=== PATIENT | female | born 1945 | race American Indian/Alaskan Native ===

== ENCOUNTER 2016-06-18 18:35 | Observation (INO) | payer MEDICARE, OTHER ==
[2016-06-18] MEDS ORDERED: Sodium Chloride 0.9% 500 ML IV STA (19:03)
--- NOTE | 2016-06-18 19:10 | ED PDOC ---
Arrival/HPI - General Historian: Patient - History of Present Illness Time/Duration: < week Symptom Onset: Gradual Symptom Course: Unchanged Quality: Aching Severity Level: 4 Activities at Onset: Rest Context: Home <Jenae Whalen - Last Filed: 06/18/16 21:42> <Demond Meier - Last Filed: 06/18/16 21:53> - General Chief Complaint: Weakness/Neurological Deficit Time Seen by Provider: 06/18/16 18:42 - History of Present Illness Narrative History of Present Illness (Text): 06/18/16 19:05 This is a 70Y F with PMH CVA x 2, HTN, HLD, anxiety, seizures, Parkinsons and multiple falls who came to the ED for weakness, diarrhea, and headache. Patient reports she was recently at [facility] 2 weeks ago for weakness. She reports feeling unsteady on her feet. She fell on Thursday (4 days ago) on her R side. She denies hitting her head. She lives alone, but has a home senior radiation protection technician who is not with her at the time. The patient admits to having diarrhea since yesterday. She denies having any blood, dark in color, fever or chills, sick contacts or recent antibiotics. The diarrhea has improved today and she admits to vomiting once this morning. Her appetite has not changed and is able to tolerate food. She states she has a headache today located in the back of her neck on the R. She took Tylenol and her headache has now resolved. When asked, she does complain for burning with urination, but denies hematuria. 06/18/16 19:14 (Jenae Whalen) Past Medical History - Provider Review Nursing Documentation Reviewed: Yes - Infectious Disease Hx of Infectious Diseases: None - Tetanus Immunization Tetanus Immunization: Unknown - Cardiac Hx Cardiac Disorders: Yes Hx Hypertension: Yes - Pulmonary Hx Respiratory Disorders: No - Neurological Hx Neurological Disorder: Yes HX Cerebrovascular Accident: Yes (weakness) Hx Parkinson's Disease: Yes Hx Seizures: Yes - HEENT Hx HEENT Disorder: No - Renal Hx Renal Disorder: No - Endocrine/Metabolic Hx Endocrine Disorders: Yes Hx Diabetes Mellitus Type 2: Yes (no longer on meds) - Hematological/Oncological Hx Blood Disorders: No - Integumentary Hx Dermatological Disorder: No - Musculoskeletal/Rheumatological Hx Musculoskeletal Disorders: Yes Hx Falls: Yes (multiple falls) - Gastrointestinal Hx Gastrointestinal Disorders: No - Genitourinary/Gynecological Hx Genitourinary Disorders: No - Psychiatric Hx Psychophysiologic Disorder: No Hx Substance Use: No - Surgical History Hx Cholecystectomy: Yes - Anesthesia Hx Anesthesia: Yes Hx Anesthesia Reactions: No - Suicidal Assessment Feels Threatened In Home Enviroment: No <Jenae Whalen - Last Filed: 06/18/16 21:42> Family/Social History - Physician Review Nursing Documentation Reviewed: Yes Family/Social History: No Known Family HX Smoking Status: Never Smoked Hx Alcohol Use: No Hx Substance Use: No Hx Substance Use Treatment: No <Jenae Whalne - Last Filed: 06/18/16 21:42> Allergies/Home Meds <Jenae Whalen - Last Filed: 06/18/16 21:42> <Demond Meier - Last Filed: 06/18/16 21:53> Allergies/Adverse Reactions: Allergies No Known Allergies Allergy (Verified 06/18/16 18:59) Home Medications: Home Meds Medication Instructions Recorded Confirmed ALPRAZolam [Xanax] 1 mg PO DAILY 06/18/16 06/18/16 Acetaminophen [Tylenol 325mg tab] 975 mg PO TID 06/18/16 06/18/16 Aspirin [Aspirin] 1 tab PO DAILY 06/18/16 06/18/16 Carbidopa/Levodopa 1 tab PO BID 06/18/16 06/18/16 [Carbidopa-Levodopa 10-100 Tab] Docusate [Colace] 100 mg PO PRN PRN 06/18/16 06/18/16 Simvastatin [Zocor] 20 mg PO DAILY 06/18/16 06/18/16 Zolpidem [Ambien] 5 mg PO HS 06/18/16 06/18/16 amLODIPine [Norvasc] 5 mg PO DAILY 06/18/16 06/18/16 Review of Systems - Review of Systems Constitutional: Normal Eyes: Normal. absent: Vision Changes ENT: Normal. absent: Hearing Changes Respiratory: SOB. absent: Cough, Sputum, Wheezing Cardiovascular: Normal. absent: Chest Pain, Palpitations Gastrointestinal: Diarrhea, Vomiting. absent: Abdominal Pain, Nausea, Appetite Changes, Anorexia, Food Intolerance Genitourinary Female: Dysuria. absent: Frequency, Hematuria Musculoskeletal: Arthralgias Skin: Other Neurological: Headache, Focal Weakness. absent: Seizure Psychiatric: Normal <Jenae Whalen - Last Filed: 06/18/16 21:42> Physical Exam Temperature: Afebrile Blood Pressure: Normal Pulse: Regular Respiratory Rate: Normal Appearance: Positive for: Well-Appearing, Non-Toxic, Comfortable Pain Distress: None Mental Status: Positive for: Alert and Oriented X 3 - Systems Exam Head: Present: Atraumatic, Normocephalic Pupils: Present: PERRL Extroacular Muscles: Present: EOMI Conjunctiva: Present: Normal Mouth: Present: Moist Mucous Membranes Neck: Present: Normal Range of Motion, Paraspinal Tenderness (on R) Respiratory/Chest: Present: Clear to Auscultation, Good Air Exchange. No: Respiratory Distress, Accessory Muscle Use Cardiovascular: Present: Regular Rate and Rhythm, Normal S1, S2. No: Murmurs, Rub, Gallop Abdomen: Present: Normal Bowel Sounds, Other (bruising on R lower abdomen ). No : Tenderness, Distention, Peritoneal Signs Lower Extremity: Present: Edema (+1 bilaterally ), Tenderness (on R leg an hip. Bruising on R thigh and hip ) Neurological: Present: GCS=15, CN II-XII Intact, Speech Normal Skin: Present: Warm, Dry, Normal Color. No: Rashes Psychiatric: Present: Alert, Oriented x 3 <Jenae Whalen - Last Filed: 06/18/16 21:42> Medical Decision Making Re-evaluation Time: 21:25 Reassessment Condition: Unchanged - Lab Interpretations I have reviewed the lab results: Yes Interpretation: Abnormal lab values - RAD Interpretation Trim Master Operator: ED Physician, Radiologist <Jenae Whalen - Last Filed: 06/18/16 21:42> - Lab Interpretations I have reviewed the lab results: Yes <Demond Meier - Last Filed: 06/18/16 21:53> ED Course and Treatment: 06/18/16 21:34 Found to have UTI. Rocephin given. Patient continues to have hip pain and leg swelling. Morphine given and bilateral venous duplex ordered. 06/18/16 21:[address] Keller who accepted patient to her service. (Jenae Whalen) Impression: In agreement with resident note, which includes further HPI details. Patient was seen and evaluated with resident, came up with plan and treatment together. Pt, whose past medical history includes CVA, hypertension, hyperlipidemia, Parkinson's disease, anxiety, and multiple fall, presented complaining of weakness, headache, and diarrhea with 1 episode of vomiting. Plan: -- CT Head w/o contrast -- Chest X-ray -- XR Hip -- Labs -- UA -- IV fluids -- Reassess and disposition 06/18/16 21:51 Patient's history of Parkinson's and CVA and her living by herself with multiple recent falls is very concerning in the setting of generalized weakness. Given high risks of additional falls and serious injury - will treat the UTI and dehydration inpatient with IVF and IV antibiotics. Case discussed with on-call physician, Dr. Keller. (Demond Meier) - Lab Interpretations Lab Results: 06/18/16 20:39 06/18/16 19:26 Lab Results 06/18/16 20:39: WBC 5.6, RBC 3.98, Hgb 13.5, Hct 39.9, MCV 100.3, MCH 33.9, MCHC 33.8, RDW 13.5, Plt Count 123, MPV 8.6, Gran % 52.6, Lymph % (Auto) 37.7 H , Petroleum % (Auto) 8.4 H, Eos % (Auto) 0.9 L, Baso % (Auto) 0.4, Gran # 2.96, Lymph # 2.1, Petroleum # 0.5, Eos # 0.1, Baso # 0.02 06/18/16 19:26: Sodium 141, Potassium 4.8, Chloride 106, Carbon Dioxide 27, Anion Gap 13, BUN 29 H, Creatinine 1.0, Est GFR ( Amer) > 60, Est GFR ( Non-Af Amer) 55, Random Glucose 99, Calcium 9.3, Total Bilirubin 1.2, AST 24, ALT 19, Alkaline Phosphatase 93, Total Protein 7.0, Albumin 3.8, Globulin 3.2, Albumin/Globulin Ratio 1.2 06/18/16 19:05: Urine Color Yellow, Urine Appearance Clear, Urine pH 6.0, Ur Specific Molino 1.025, Urine Protein Negative, Urine Glucose (UA) Negative, Urine Ketones Negative, Urine Blood Negative, Urine Nitrate Negative, Urine Bilirubin Negative, Urine Urobilinogen 0.2, Ur Leukocyte Esterase Trace H, Urine RBC 0 - 2, Urine WBC 15 - 20, Ur Epithelial Cells 0 - 2, Urine Bacteria Small, Urine Other Mucus - RAD Interpretation Narrative RAD Interpretations (Text): 06/18/16 20:36 Hip XR no fractures noted. CXR showed no active disease. Head CT negative for acute finding. (Jenae Whalen) Radiology Orders: 06/18/16 18:59 HEAD W/O CONTRAST [CT] Stat CHEST PORTABLE [RAD] Stat HIP MIN 2V W/ PELVIS RT [RAD] Stat 06/18/16 21:19 Hip [CT HIP W/O CONTRAST BILATERAL] [CT] Stat 06/18/16 21:24 DUPLEX LOWER EXTRM VEIN BILAT [US] Stat - Medication Orders Current Medication Orders: Sodium Chloride (Sodium Chloride 0.9%) 1,000 mls @ 100 mls/hr IV .Q10H STA Stop: 06/19/16 07:18 Last Admin: 06/18/16 21:35 Dose: 100 mls/hr Discontinued Medications Sodium Chloride (Sodium Chloride 0.9%) 500 mls @ 999 mls/hr IV .Q31M STA Stop: 06/18/16 19:33 Last Admin: 06/18/16 19:32 Dose: 999 mls/hr Ceftriaxone Sodium (Rocephin 1 Gram Ivpb) 1 gm in 100 mls @ 200 mls/hr IVPB STAT STA PRN Reason: Protocol Stop: 06/18/16 21:41 Last Admin: 06/18/16 21:28 Dose: 200 mls/hr Morphine Sulfate (Morphine) 2 mg IVP STAT STA Stop: 06/18/16 21:25 Last Admin: 06/18/16 21:35 Dose: 2 mg - PA / AGENCY APPOINTMENTS SUPERVISOR / Resident Statement / has reviewed & agrees with the documentation as recorded. / has examined the patient and agrees with the treatment plan. <Demond Meier - Last Filed: 06/18/16 21:53> Disposition/Present on Arrival - Present on Arrival Any Indicators Present on Arrival: No History of DVT/PE: No History of Uncontrolled Diabetes: No Urinary Catheter: No History of Decub. Ulcer: No History Surgical Site Infection Following: None - Disposition Have Diagnosis and Disposition been Completed?: Yes Disposition Time: 21:25 Patient Plan: Admission <KobyJenae - Last Filed: 06/18/16 21:42> <Demond Meier - Last Filed: 06/18/16 21:53> - Disposition Diagnosis: UTI (urinary tract infection), Weakness, Fall Disposition: HOSPITALIZED Patient Problems: Current Active Problems Problem Status Onset Fall Acute UTI (urinary tract infection) Acute Weakness Acute Condition: FAIR Print Language: NICARAGUAN Referrals: [facility], [Non-Staff] - Follow up with primary Dash Kennedy MD [Medical Doctor] - Follow up with primary Linda Rose MD [Medical Doctor] - Follow up with primary
[2016-06-18 19:19] LABS: URINE BILIRUBIN NEGATIVE (NEGATIVE); URINE BLOOD NEGATIVE (NEGATIVE); URINE GLUCOSE (UA) NEGATIVE (NEGATIVE); URINE KETONE NEGATIVE (NEGATIVE); URINE LEUKOCYTE ESTERASE TRACE Leu/uL (NEGATIVE); URINE PROTEIN NEGATIVE mg/dL (<30 mg/dL); URINE UROBILINOGEN 0.2 E.U./dL (<1 E.U./dL)
[2016-06-18 19:43] LABS: URINE APPEARANCE CLEAR (CLEAR); URINE COLOR YELLOW (YELLOW)
[2016-06-18 20:19] LABS: URINE RBC 0 - 2 /hpf (0-2); URINE WBC 15 - 20 /hpf (0-6)
[2016-06-18 20:20] LABS: URINE BACTERIA SMALL (NEG); URINE EPITHELIAL CELLS 0 - 2 /hpf (0-5)
[2016-06-18 20:40] LABS: ADD MANUAL DIFF? NO
[2016-06-18 20:44] LABS: BASO # 0.02 K/mm3 (0.0-2.0); BASO % 0.4 % (0.0-3.0); EOS # 0.1 (0.0-0.7); EOS % 0.9 % (1.5-5.0); GRAN # 2.96 (1.4-6.5); GRAN % 52.6 % (50.0-68.0); HEMATOCRIT 39.9 % (36.0-48.0); LYMPH # 2.1 (1.2-3.4); LYMPH % 37.7 % (22.0-35.0); MEAN CELL VOLUME 100.3 fL (80.0-105.0); MEAN CORPUSCULAR HEMOGLOBIN 33.9 pg (25.0-35.0); MEAN CORPUSCULAR HGB CONC 33.8 g/dl (31.0-37.0); MEAN PLATELET VOLUME 8.6 fl (7.0-11.0); MONO # 0.5 (0.1-0.6); MONO % 8.4 % (1.0-6.0); PLATELET COUNT 123 10^3/uL (120.0-450.0); RED CELL DISTRIBUTION WIDTH 13.5 % (11.5-14.5); WHITE BLOOD COUNT 5.6 10^3/ul (4.5-11.0)
[2016-06-18 21:12] LABS: ALB/GLOB RATIO 1.2 (1.1-1.8); ALKALINE PHOSPHATASE 93 U/L (38-133); ALT/SGPT 19 U/L (7-56); AST/SGOT 24 U/L (15-39); BILIRUBIN,TOTAL 1.2 mg/dL (0.2-1.3); BLOOD UREA NITROGEN 29 mg/dL (7-21); CALCIUM 9.3 mg/dL (8.4-10.5); CARBON DIOXIDE 27 mmol/L (21-33); CHLORIDE 106 mmol/L (98-107); GFR AFRICAN-AMERICAN > 60; GLUCOSE,RANDOM 99 mg/dL (70-110); POTASSIUM 4.8 mmol/L (3.6-5.0); SODIUM 141 mmol/L (132-148)
[2016-06-18] MEDS ORDERED: cefTRIAXone 1 gm 1 GM/100 ML BAG IVPB STA (21:12)
[2016-06-18] MEDS ORDERED: Sodium Chloride 0.9% 1,000 ML IV STA (21:19)
[2016-06-18] MEDS ORDERED: Morphine 2 mg/ml ISec IVP STA (21:24)
[2016-06-18 23:00] LABS: CHOLESTEROL 189 mg/dL (130-200)
[2016-06-18 23:08] VITALS: BMI 28.3
[2016-06-18] MEDS ORDERED: Pneumococcal 23-Valent Vaccine IM ONE (23:08)
--- NOTE | 2016-06-19 01:21 | HP ---
HISTORY OF PRESENT ILLNESS: The patient is a 70-year-old female who was brought to the [facility] because of generalized weakness. Complained of feeling dizzy. She has been having intermittent di arrhea. The patient states she went to the [facility] 2 weeks ago with similar complaint. She was having generalized weakness, difficulty walking. She fell a few days ago on her right side, did not lose consciousness, did not have seizures. Denies any nausea; however, she has poor appetite . No hemoptysis, no hematemesis. No history of fever or chills. The patient stated earlier this mo rning she was feeling very weak. She has headache and did respond to Tylenol. Does complain of some flank discomfort and lower back pain along with increased frequency of urination and some discomfort upon urination. PAST MEDICAL HISTORY: Significant for: 1. Hypertension. 2. History of cerebrovascular accident in the past. 3. Parkinson's disease. 4. History of seizure disorder. 5. Diet-controlled diabetes. PAST SURGICAL HISTORY: Significant for a cholecystectomy in remote past. ALLERGIES: She is not allergic to any medications. MEDICATIONS AT HOME: She is on Ambien 5 mg at bedtime, Zocor 20 mg daily, Norvasc 5 mg daily, carbid opa/levodopa 1 tablet twice a day, 81 daily, Xanax mg daily as needed. SOCIAL HISTORY: Denies smoking, drinking or alcohol use. REVIEW OF SYSTEMS: Significant for generalized weakness, difficulty walking, had multiple falls at [facility]. PHYSICAL EXAMINATION: GENERAL: She is awake and alert, complains of generalized weakness. VITAL SIGNS: She is afebrile, pulse 75, respirations 18, blood pressure 122/73. LUNGS: Bilateral fair airflow, no rhonchi or crackles. HEART: S1, S2 audible. ABDOMEN: Soft, nontender, no rebound, no guarding. NEUROLOGIC: She is awake and alert, able to communicate. EXTREMITIES: Bilateral leg, no edema. LABORATORY DATA: Urinalysis shows trace leukocyte, 15-[address] scan of the head is negative. X- ray of the hip and the pelvis is negative for fracture. ASSESSMENT: 1. Generalized weakness. 2. Multiple falls at home. 3. Gastroenteritis. 4. Mild renal insufficiency. 5. Pyuria. 6. History of Parkinson's disease with unsteady gait. PLAN: The patient will be admitted. We will start her on IV fluids, IV antibiotic and blood culture . chest was requested. Will resume patient's medication and will reevaluate the lyuboven kylee in tremaine.m. Anna Keller MD cc: [phone] TT: 06/19/2016 01:21:20 mn
[2016-06-19 07:05] LABS: ADD MANUAL DIFF? NO
[2016-06-19 07:16] LABS: BASO # 0.02 K/mm3 (0.0-2.0); BASO % 0.4 % (0.0-3.0); EOS # 0.1 (0.0-0.7); EOS % 1.2 % (1.5-5.0); GRAN # 2.62 (1.4-6.5); GRAN % 52.2 % (50.0-68.0); HEMATOCRIT 38.2 % (36.0-48.0); LYMPH % 39.4 % (22.0-35.0); MEAN CELL VOLUME 99.5 fL (80.0-105.0); MEAN CORPUSCULAR HEMOGLOBIN 33.3 pg (25.0-35.0); MEAN CORPUSCULAR HGB CONC 33.5 g/dl (31.0-37.0); MEAN PLATELET VOLUME 8.8 fl (7.0-11.0); MONO # 0.3 (0.1-0.6); MONO % 6.8 % (1.0-6.0); PLATELET COUNT 135 10^3/uL (120.0-450.0); RED CELL DISTRIBUTION WIDTH 13.6 % (11.5-14.5)
[2016-06-19 07:32] LABS: ALKALINE PHOSPHATASE 88 U/L (38-133); ALT/SGPT 19 U/L (7-56); AST/SGOT 18 U/L (15-39); BLOOD UREA NITROGEN 22 mg/dL (7-21); CALCIUM 8.7 mg/dL (8.4-10.5); CARBON DIOXIDE 26 mmol/L (21-33); CHLORIDE 108 mmol/L (98-107); GFR AFRICAN-AMERICAN > 60; GLUCOSE,RANDOM 73 mg/dL (70-110); MAGNESIUM 1.8 mg/dL (1.7-2.2); PHOSPHOROUS 3.7 mg/dL (2.5-4.5); POTASSIUM 4.4 mmol/L (3.6-5.0); SODIUM 141 mmol/L (132-148); TOTAL PROTEIN 6.3 g/dL (5.8-8.3)
[2016-06-19 07:41] LABS: FREE T4 0.77 ng/dL (0.78-2.19)
--- NOTE | 2016-06-19 08:05 | CT ---
PROCEDURE: CT HEAD WITHOUT CONTRAST. HISTORY: r/o cva COMPARISON: 04/16/2014 TECHNIQUE: Axial computed tomography images were obtained through the head/brain without intravenous contrast. Radiation dose: Total exam DLP = 725 mGy-cm. This CT exam was performed using one or more of the following dose reduction techniques: Automated exposure control, adjustment of the mA and/or kV according to patient size, and/or use of iterative reconstruction technique. FINDINGS: HEMORRHAGE: No intracranial hemorrhage. BRAIN: No mass effect or edema. No atrophy or chronic microvascular ischemic changes. VENTRICLES: Unremarkable. No hydrocephalus. CALVARIUM: Unremarkable. PARANASAL SINUSES: Unremarkable as visualized. No significant inflammatory changes. MASTOID AIR CELLS: Unremarkable as visualized. No inflammatory changes. OTHER FINDINGS: The report concurs with the preliminary [facility] report IMPRESSION: No acute findings
--- NOTE | 2016-06-19 08:23 | RAD ---
PROCEDURE: Pelvis and right hip HISTORY: fall COMPARISON: TECHNIQUE: Three views FINDINGS: There is no evidence of fracture. No significant degenerative changes. No bony abnormalities IMPRESSION: Negative study
--- NOTE | 2016-06-19 08:23 | RAD ---
HISTORY: sob COMPARISON: No prior. FINDINGS: LUNGS: No active pulmonary disease. PLEURA: No significant pleural effusion identified, no pneumothorax apparent. CARDIOVASCULAR: Normal. OSSEOUS STRUCTURES: No significant abnormalities. VISUALIZED UPPER ABDOMEN: Normal. OTHER FINDINGS: None. IMPRESSION: No active disease.
--- NOTE | 2016-06-19 09:03 | CT ---
PROCEDURE: CT pelvis/ bilateral hips HISTORY: hip pain post fall; negative XR COMPARISON: Not available TECHNIQUE: 2.5 mm contiguous axial sections were acquired through the pelvis and hips. Sagittal and coronal images were reformatted from the axial scan. FINDINGS: Bones: No evidence of fracture. Joint spaces and articular surfaces preserved. No pelvic fracture appreciated. No evidence of soft tissue hematoma. Soft tissues: Uterine endometrium is prominent. Recommend evaluation with transvaginal pelvic ultrasound examination. No adnexal masses. Urinary bladder unremarkable. No pelvic lymphadenopathy. No ascites. Sigmoid diverticulosis. IMPRESSION: No evidence of acute fracture. Incidentally noted questionably thickened endometrium. Recommend evaluation with transvaginal pelvic ultrasound. No other acute abnormality. Preliminary interpretation of this examination was reported by [facility] at 11:56 p.m. on 06/18/2016. There is concurrence of this report with the preliminary interpretation.
[2016-06-19 09:48] LABS: THYROID STIMULATING HORMONE 2.26 mIU/mL (0.46-4.68)
[2016-06-19] MEDS: Oxycodone/Acetaminophen 5/325 mg Tab PO PRN (10:22)
[2016-06-19] MEDS: cefTRIAXone 1 gm 1 GM/100 ML BAG IVPB SCH (10:23)
--- NOTE | 2016-06-19 13:21 | PN ---
DATE: 06/19/2016 The patient is a 70-year-old, seen and examined. Initially was agitated, given Ativan and her usual pain medication. Seems to be sleepy now, wants to take a nap. PHYSICAL EXAMINATION: VITAL SIGNS: She is afebrile, pulse 67, respirations 20, blood pressure 130/60. LUNGS: Bilateral fair airflow, no rhonchi or crackle. HEART: S1, S2 audible. No murmur. ABDOMEN: Soft, nontender, obese. No hepatosplenomegaly. NEUROLOGIC: The patient is awake and alert, communicative. LABORATORY EXAMINATION: WBCs 5.0, hemoglobin 12.8, hematocrit 38.2, platelets 135. Chemistry: Sodi um 141, potassium 4.4, chloride 108, CO2 26, BUN 22, creatinine 0.8, blood sugar of 73, triglyceride 371. Her urine culture, blood cultures are negative. Carotid Doppler is pending. CT scan of the he ad was done. That is negative. ASSESSMENT: 1. Status post syncope. 2. Status post multiple falls. 3. Unstable gait. 4. History of hypertension. 5. Chronic degenerative disk disease. 6. History of Parkinson disease. 7. History of seizure disorder. PLAN: We will continue patient on current medication. Will follow up culture and sensitivity and gena foster disposition plan according to that. She might need rehab since she has unstable gait and had mult iple falls. Anna Keller MD cc: [phone] TT: 06/19/2016 13:20:21 Confirmation # [id number] Dictation # [id number]
--- NOTE | 2016-06-19 18:14 | US ---
HISTORY: Leg pain and swelling. Evaluate for DVT PHYSICIAN(S): Austin Lara MD. TECHNIQUE: Duplex sonography and color-flow Doppler with graded compression were used to evaluate the deep venous systems of both lower extremities. FINDINGS: The visualized deep venous systems of both lower extremities are sonographically normal and compressible. Normal wave forms and augmentation are seen. There is no sonographic evidence for deep venous thrombosis in the visualized segments of both lower extremities. IMPRESSION: No sonographic evidence for deep venous thrombosis in the visualized segments of both lower extremities.
--- NOTE | 2016-06-19 18:18 | US ---
PROCEDURE: Bilateral carotid artery duplex ultrasound HISTORY: Carotid stenosis syncope PHYSICIAN(S): Austin Lara MD. TECHNIQUE: Duplex sonography and color-flow Doppler were used to evaluate the carotid bifurcations and limited segments of the vertebral arteries bilaterally. FINDINGS: The exam is limited by tortuous vessels. There is mild heterogeneous plaque noted at the carotid bifurcations bilaterally. The peak systolic velocity in the proximal right internal carotid artery is 94 cm/sec. This corresponds to a 20 to 39% proximal right ICA stenosis. Normal systolic velocities are noted in the proximal right external carotid artery. There is antegrade flow in the right vertebral artery. The peak systolic velocity in the proximal left internal carotid artery is 89 cm/sec. This corresponds to a 20 to 39% proximal left ICA stenosis. Normal systolic velocities are noted in the proximal left external carotid artery. There is antegrade flow in the left vertebral artery. IMPRESSION: 1. Bilateral 20-39% proximal ICA stenoses. 2. Antegrade flow in both vertebral arteries. 3. Limited study.
--- NOTE | 2016-06-19 19:19 | CON ---
DATE: 06/19/2016 HISTORY OF PRESENT ILLNESS: This is a 70-year-old female with a past medical history of hypertension , history of CVA, Parkinson disease and seizure disorder, and diabetes which is diet controlled. The patient came here with generalized weakness and feeling dizzy and having diarrhea off and on. The p atient was recently discharged from [facility]. The patient has weakness and difficu lty walking. I was called to evaluate the patient. PAST MEDICAL HISTORY: Hypertension, stroke, Parkinson's and seizure, and diabetes diet controlled. PAST SURGICAL HISTORY: Status post cholecystectomy. ALLERGIES: Not allergic to any medications. SOCIAL HISTORY: Does not smoke, does not drink. REVIEW OF SYSTEMS: A 10-point review of systems: Has difficulty in movement and mild rigidity of al l the extremities. PHYSICAL EXAMINATION: HEENT: Normocephalic, atraumatic. NECK: Supple. NEUROLOGIC: Awake, alert, oriented x 3. No aphasia. Cranial nerves II through XII were tested. Pu pils reactive. EOM intact. Visual mullen full. No facial asymmetry. Tongue midline. Motor examin ation: Masked faces and mild rigidity of all the extremities noted. Deep tendon reflexes 1+. Both plantars are downgoing. swelling of both the ankles noted and cerebellar no dysmetria. Gait d eferred. IMPRESSION: The patient here with generalized weakness, Parkinson's disease and history of stroke an d Parkinson's and diet-controlled diabetes. The patient was getting Sinemet 10/100 twice a day, we w ill increase to 10/100 three times a day and physical therapy. We will follow up. Ky Kothari MD cc: [phone] TT: 06/19/2016 19:18:22 Confirmation # [id number] Dictation # [id number] mn
[2016-06-20] MEDS: Oxycodone/Acetaminophen 5/325 mg Tab PO PRN (04:42)
[2016-06-20 08:01] VITALS: RESP 18
[2016-06-20] MEDS: cefTRIAXone 1 gm 1 GM/100 ML BAG IVPB SCH (09:24)
[2016-06-20 18:06] VITALS: BP 128/70; PULSE 68; TEMP 97.6; O2SAT 98
--- NOTE | 2016-06-21 11:22 | DS ---
The patient is a 70-year-old female with significant history of hypertension, CVA, Parkinson's diseas e and seizure disorder, who came in because of generalized weakness, difficulty walking. The patient was evaluated by physical therapist who has recommended subacute rehab, but the patient is very agit ated and rude and she states there is no way she is going to any subacute rehab. She would rather go home and have physical therapy done at home. PHYSICAL EXAMINATION: VITAL SIGNS: She is afebrile, pulse 65, respirations 18, blood pressure 120/64. LUNGS: Bilateral fair airflow, no rhonchi or crackle. HEART: S1, S2 audible. ABDOMEN: Soft, obese, nontender, no rebound, no guarding. NEUROLOGIC: The patient is awake and alert, communicative. LABORATORY EXAMINATION: WBC is 5.0, hemoglobin 12.8, hematocrit 38, platelet of 135. Chemistry: So dium 141, potassium 4.4, chloride 108, CO2 of 26, BUN 22, creatinine 0.8, blood sugar of 73, triglyce rides 371. Urinalysis is unremarkable. Carotid Doppler is unremarkable. Bilateral leg Doppler nega tive for DVT and her hip CT is also unremarkable. ASSESSMENT: 1. Generalized weakness, difficulty walking and deconditioning, status post multiple falls at home. 2. Resolved gastroenteritis, mild renal insufficiency, improved. 3. History of Parkinson disease. PLAN: The patient was strongly recommended that she should go to subacute rehab where she should get physical therapy and gait training, but patient is adamant and she does want to go home today. She will be discharged. She will resume her medications including Norvasc 5 mg daily, Ambien 5 mg at bed time, Zocor 20 mg daily, Colace 100 mg at bedtime, carbidopa/levodopa 1 tablet twice a day, aspirin 81 daily, Xanax as needed. She will follow up with her PMD, Dr. Rose. Anna Keller MD cc: [phone] TT: 06/21/2016 11:21:11 tn
== END 2016-06-20 18:05 | disposition home health service (06) ==
LOC: ED 18:35 → INTOOBSV 21:40 → ERH 21:40 → 3RNO 23:50
PROVIDERS: ADMIT Internal Medicine; ATTEND Internal Medicine
DX: K52.9 Noninfective gastroenteritis and colitis, unspecified (principal); G20 Parkinson's disease; N39.0 Urinary tract infection, site not specified; I10 Essential (primary) hypertension; E11.9 Type 2 diabetes mellitus without complications; B96.20 Unspecified Escherichia coli [E. coli] as the cause of diseases classified elsewhere; R53.1 Weakness; G40.909 Epilepsy, unspecified, not intractable, without status epilepticus; N28.9 Disorder of kidney and ureter, unspecified; Z86.73 Personal history of transient ischemic attack (TIA), and cerebral infarction without residual deficits; Z90.49 Acquired absence of other specified parts of digestive tract; Z79.899 Other long term (current) drug therapy; Z91.81 History of falling; R26.2 Difficulty in walking, not elsewhere classified; R53.81 Other malaise; M51.36 Other intervertebral disc degeneration, lumbar region; R55 Syncope and collapse; E78.5 Hyperlipidemia, unspecified; F41.9 Anxiety disorder, unspecified; R51 Headache; R40.2412 Glasgow coma scale score 13-15, at arrival to emergency department; E86.0 Dehydration; R26.81 Unsteadiness on feet
CPT/HCPCS: 36415; 70450; 71010; 73502; 73700; 80053; 80061; 81001; 83735; 84100; 84439; 84443; 85025; 87086; 87181; 93880; 93970; 96374; 96375; 97161; 97530; 99285; G0378; G8978; G8979; J0696; J2270; J7040